=== PATIENT | female | born 1995 | race Caucasian/White ===

== ENCOUNTER → 2016-04-10 | Outpatient (CLI) | payer OTHER ==
[~2016-04-10] MED LIST: PRENTAB26 PO
--- NOTE | 2016-04-10 13:27 | DIAGNOSTIC IMAGING REPORT ---
CHEST 2 VIEWS ROUTINE HISTORY: J20.9 Acute bronchitis with [id number] COMPARISON: None. FINDINGS: The lungs are clear. Cardiac silhouette is normal in size. No pleural effusions. No pneumothorax. IMPRESSION: No acute process. Electronically signed by: Kody Redd M.D. 04/10/2016 1:25 PM Dictated Date/Time: 04/10/2016 1:24 PM
[2016-04-10 14:24] LABS: BASO % 0.2 %; BASO ABS # 0.02 K/uL (0-0.2); COMPLETE YES; EOS % 1.2 %; HEMATOCRIT 42.1 % (37-47); IG% 0.1 %; LYMPH % 18.3 %; LYMPH ABS # 2.22 K/uL (1.2-3.4); MEAN CELL VOLUME 92.9 fL (80-100); MEAN CORPUSCULAR HEMOGLOBIN 31.8 pg (25-34); MEAN CORPUSCULAR HGB CONC 34.2 g/dl (32-36); MEAN PLATELET VOLUME 10.6 fL (7.4-10.4); NEUT % 71.2 %; PLATELET COUNT 322 K/uL (130-400); RED BLOOD COUNT 4.53 M/uL (4.2-5.4); WHITE BLOOD COUNT 12.16 K/uL (4.8-10.8)
[2016-04-10 14:34] LABS: ALT/SGPT 16 U/L (12-78); BLOOD UREA NITROGEN 9 mg/dl (7-18); BUN/CREATININE RATIO 13.6 (10-20); CALCIUM 9.1 mg/dl (8.5-10.1); CARBON DIOXIDE 23 mmol/L (21-32); CHLORIDE 104 mmol/L (98-107); CREATININE 0.66 mg/dl (0.60-1.20); GLUCOSE 76 mg/dl (70-99); POTASSIUM 4.1 mmol/L (3.5-5.1); SODIUM 138 mmol/L (136-145)
[2016-04-10 14:37] LABS: ALKALINE PHOSPHATASE 51 U/L (45-117); AST/SGOT 11 U/L (15-37)
== END | disposition home or self-care (01) ==
LOC: C.RAD1850 13:06
PROVIDERS: ATTEND Nurse Practitioner Adult Health
DX: J20.9 Acute bronchitis, unspecified (principal)

== ENCOUNTER → 2016-05-20 | Outpatient (CLI) | payer OTHER ==
[2016-05-22 01:21] LABS: CHLAMYDIA TRACH RNA*** NOT DETECTED (NOT DETECTED); GC (NEIS GONORRHOEAE)RNA** NOT DETECTED (NOT DETECTED)
== END | disposition home or self-care (01) ==
LOC: C.LABSPEC 12:56
PROVIDERS: ATTEND Obstetrics & Gynecology
DX: Z11.3 Encounter for screening for infections with a predominantly sexual mode of transmission (principal)

== ENCOUNTER → 2016-05-20 | Outpatient (CLI) | payer OTHER | END | disposition home or self-care (01) | LOC: C.PAPS 14:01 | PROVIDERS: ATTEND Obstetrics & Gynecology | DX: Z01.419 Encounter for gynecological examination (general) (routine) without abnormal findings (principal) ==

== ENCOUNTER → 2016-07-09 | Outpatient (CLI) | payer OTHER ==
[2016-07-09 13:19] LABS: URINE APPEARANCE CLEAR (CLEAR); URINE BILIRUBIN NEG (NEG); URINE COLOR YELLOW; URINE NITRITE NEG (NEG); URINE PH 6.5 (4.5-7.5); URINE SPECIFIC GRAVITY 1.011 (1.000-1.030); UROBILINOGEN NEG (NEG)
[2016-07-09 13:29] LABS: MANUAL MICROSCOPIC REQUIRED? NO; REVIEW REQ? NO
== END | disposition home or self-care (01) ==
LOC: C.LAB1850 11:18
PROVIDERS: ATTEND Obstetrics & Gynecology
DX: R39.9 Unspecified symptoms and signs involving the genitourinary system (principal)

== ENCOUNTER → 2017-03-02 | Outpatient (CLI) | payer OTHER ==
[2017-03-02 15:33] LABS: BASO % 0.1 %; BASO ABS # 0.01 K/uL (0-0.2); COMPLETE YES; EOS % 0.5 %; HEMATOCRIT 39.9 % (37-47); IG% 0.3 %; LYMPH % 16.6 %; LYMPH ABS # 1.91 K/uL (1.2-3.4); MEAN CELL VOLUME 95.2 fL (80-100); MEAN CORPUSCULAR HEMOGLOBIN 32.5 pg (25-34); MEAN CORPUSCULAR HGB CONC 34.1 g/dl (32-36); MEAN PLATELET VOLUME 10.6 fL (7.4-10.4); MONO % 6.8 %; NEUT % 75.7 %; PLATELET COUNT 270 K/uL (130-400); RED BLOOD COUNT 4.19 M/uL (4.2-5.4); WHITE BLOOD COUNT 11.48 K/uL (4.8-10.8)
[2017-03-02 18:15] LABS: URINE APPEARANCE CLEAR (CLEAR); URINE BILIRUBIN NEG (NEG); URINE COLOR YELLOW; URINE EPITHELIAL CELL AUTO >30 /lpf (0-5); URINE NITRITE NEG (NEG); URINE PH 6.5 (4.5-7.5); URINE SPECIFIC GRAVITY 1.021 (1.000-1.030); UROBILINOGEN NEG (NEG)
[2017-03-02 18:31] LABS: MANUAL MICROSCOPIC REQUIRED? NO; REVIEW REQ? NO
[2017-03-05 01:23] LABS: CHLAMYDIA TRACH RNA*** NOT DETECTED (NOT DETECTED); GC (NEIS GONORRHOEAE)RNA** NOT DETECTED (NOT DETECTED)
== END | disposition home or self-care (01) ==
LOC: C.LAB1850 14:37
PROVIDERS: ATTEND Obstetrics & Gynecology
DX: Z34.91 Encounter for supervision of normal pregnancy, unspecified, first trimester (principal)

== ENCOUNTER → 2017-04-26 | Outpatient (CLI) | payer OTHER | END | disposition home or self-care (01) | LOC: C.LAB1850 14:07 | PROVIDERS: ATTEND Obstetrics & Gynecology | DX: Z34.92 Encounter for supervision of normal pregnancy, unspecified, second trimester (principal); Z3A.00 Weeks of gestation of pregnancy not specified ==

== ENCOUNTER → 2017-07-19 | Outpatient (CLI) | payer OTHER ==
[2017-07-19 17:30] LABS: HEMATOCRIT 35.8 % (37-47); HEMOGLOBIN 12.1 g/dL (12.0-16.0)
== END | disposition home or self-care (01) ==
LOC: C.LAB1850 16:57
PROVIDERS: ATTEND Obstetrics & Gynecology
DX: Z34.93 Encounter for supervision of normal pregnancy, unspecified, third trimester (principal)

== ENCOUNTER 2020-10-13 04:41 | Inpatient (IN) ==
[2020-10-13] MEDS ORDERED: LACTATED RINGER'S 1,000 ML IV PRN (04:53)
[2020-10-13] MEDS ORDERED: OXYTOCIN 30 UNITS/500 ML BAG IV PRN ×2 (04:53→05:37)
--- NOTE | 2020-10-13 05:10 | Delivery Summary ---
Vaginal Delivery Summary Date of Service October 13, 2020 Vaginal Delivery Summary This was this patient's treatment patient arrived in active labor fully dilated group B strep negative is her third baby she began to push and pushed over 3 contractions fluid was clear however minimal fluid was noticed. Baby's head was delivered still rupture membranes membranes were then released and was a loose nuchal cord passed over the head mouth and then nares were suctioned baby was delivered with gentle traction no excessive force used baby live vigorous male cord clamped and cut cord blood obtained placenta removed with gentle traction IV Pitocin started uterine tone improved estimated blood loss was 100 mL mL sponge and instrument counts correct [facility] Vaginal Delivery Charge Vaginal Delivery Codes: 85459 global code for the antepartum, delivery, and post- Delivery Type Details:
[2020-10-13 05:34] LABS: Hemoglobin 12.5 g/dL (12.0-16.0); Mean Corpuscular Hemoglobin 29.6 pg (25-34); Mean Corpuscular Hgb Conc 32.9 g/dL (32-36); Mean Corpuscular Volume 89.8 fL (80-100); Mean Platelet Volume 10.6 fL (7.4-10.4); Platelet Count 281 K/uL (130-400); RDW Coefficient of Variation 14.4 % (11.5-14.5); RDW Standard Deviation 47.2 fL (36.4-46.3); Red Blood Count 4.23 M/uL (4.2-5.4); White Blood Count 11.35 K/uL (4.8-10.8)
[2020-10-13] MEDS ORDERED: oxyCODONE/ACETAMINOPHEN 5mg/325mg TAB PO PRN (05:37)
[2020-10-13] MEDS ORDERED: DIPHTHERIA/TETANUS/PERTUSSIS 0.5 ML SYR/VIAL IM ONE (05:37)
[2020-10-13] MEDS ORDERED: BENZOCAINE 20% AER SPR 82.5 GM CAN EXT PRN (05:37)
[2020-10-13] MEDS ORDERED: ACETAMINOPHEN 325 MG TAB PO PRN (05:37)
[2020-10-13] MEDS ORDERED: bisacodyL 10 MG SUPP PR PRN (05:37)
[2020-10-13] MEDS ORDERED: HYDROCORTISONE ACETATE 25 MG SUPP PR PRN (05:37)
[2020-10-13] MEDS ORDERED: SUPERCREAM 0.870% 15 GM JAR EXT PRN (05:37)
[2020-10-13] MEDS ORDERED: IBUPROFEN 600 MG TAB PO ONE (05:40)
--- NOTE | 2020-10-13 08:29 | Obstetrical Progress Note ---
Date of Service October 13, 2020 Assessment & Plan (1) Encounter for supervision of normal in multigravida: cont current care Subjective Ambulation: ambulating normally Voiding: no voiding problems Passing Gas:: Yes Diet Tolerance:: regular diet Lochia:: Small Results & Data ([facility]) Vital Signs (Past 12 Hours) Vital Signs Temp Pulse Resp BP 10/13/20 07:14 97.9 F 20 10/13/20 07:09 88 122/72 10/13/20 07:07 82 128/72 10/13/20 06:52 75 131/72 10/13/20 06:37 18 133/71 10/13/20 06:22 75 122/72 10/13/20 06:07 90 18 118/71 10/13/20 05:52 85 18 125/83 10/13/20 05:37 81 18 123/78 10/13/20 05:22 78 18 125/65 10/13/20 05:16 20 10/13/20 05:07 98.2 F 86 20 129/61 10/13/20 04:55 110 H 165/97 H
[2020-10-13] MEDS: DOCUSATE SODIUM 100 MG CAP PO SCH ×2 (09:04→20:51)
[2020-10-13] MEDS: PRENATAL VITAMIN 1 TAB PO SCH (09:04)
[2020-10-13] MEDS: IBUPROFEN 600 MG TAB PO PRN ×2 (12:46→20:51)
[2020-10-14 06:18] LABS: Hematocrit (blood only) 35.8 % (37-47); Hemoglobin 11.7 g/dL (12.0-16.0); Mean Corpuscular Hemoglobin 29.4 pg (25-34); Mean Corpuscular Hgb Conc 32.7 g/dL (32-36); Mean Corpuscular Volume 89.9 fL (80-100); Mean Platelet Volume 10.9 fL (7.4-10.4); Platelet Count 240 K/uL (130-400); RDW Coefficient of Variation 14.7 % (11.5-14.5); RDW Standard Deviation 48.1 fL (36.4-46.3); Red Blood Count 3.98 M/uL (4.2-5.4); White Blood Count 14.34 K/uL (4.8-10.8)
--- NOTE | 2020-10-14 07:05 | Obstetrical Progress Note ---
Date of Service October 14, 2020 Assessment & Plan (1) Encounter for supervision of normal in multigravida: day #1 the patient is well she has no extremity pain or tenderness she meets criteria and wishes to go home Subjective Ambulation: ambulating normally Voiding: no voiding problems Passing Gas:: Yes Diet Tolerance:: regular diet Lochia:: Small Results & Data ([facility]) Vital Signs (Past 12 Hours) Vital Signs Temp Pulse Resp BP Pulse Ox 10/14/20 04:30 98.4 F 77 20 129/85 99 10/13/20 23:15 98.2 F 86 18 113/72 98 10/13/20 19:13 98.4 F 78 18 121/79 96
[2020-10-14] MEDS: IBUPROFEN 600 MG TAB PO PRN (08:27)
[2020-10-14] MEDS: DOCUSATE SODIUM 100 MG CAP PO SCH (08:28)
[2020-10-14] MEDS: PRENATAL VITAMIN 1 TAB PO SCH (08:28)
[2020-10-14 09:40] VITALS: BP 115/78; PULSE 80; TEMP 98.6; O2SAT 98
[2020-10-14] MEDS ORDERED: bisacodyL 5 MG TABEC PO SCH (20:00)
== END 2020-10-14 11:05 | disposition home or self-care (01) | DRG 807 ==
LOC: OPB 04:41 → 4S1 04:44 → 4S2 07:40